=== PATIENT | male | born 2000 | race Caucasian/White ===

== ENCOUNTER 2025-02-28 19:33 | Emergency (ER) | payer MEDICAID ==
[~2025-02-28] VITALS: Ht 172.7 cm; Wt 90.0 kg
[2025-02-28 19:39] VITALS: TEMP 36.9; O2SAT 100
[2025-02-28 20:27] LABS: BASOPHILS % 0.6 % (0.0-2.0); EOSINOPHILS % 0.5 % (0.0-5.0); HEMATOCRIT. 41.2 % (42.0-52.0); HEMOGLOBIN. 14.4 g/dL (14.0-18.0); LYMPHOCYTES % 21.9 % (20.0-50.0); MEAN PLATELET VOLUME 10.1 fl (7.4-10.4); MONOCYTES % 9.1 % (2.0-8.0); NEUTROPHILS % 67.9 % (40.0-76.0); PLATELET 207 x1000/uL (130-400); RED BLOOD CELL COUNT 4.74 mill/uL (4.7-6.1); RED CELL DISTRIBUTION WIDTH 13.7 % (11.6-14.6)
[2025-02-28 20:41] LABS: CREATININE 1.1 mg/dL (0.6-1.3)
[2025-02-28 20:42] LABS: ETHANOL BLOOD < 10 mg/dL (<10); UREA NITROGEN BLOOD 11 mg/dL (9-23)
[2025-02-28] MEDS: SODIUM CHLORIDE 0.9% 1,000 ML IV ONE (21:06)
[2025-02-28 21:23] LABS: *AMPHETAMINES SCREEN URINE PRESUMPTIVE POSITIVE (NEGATIVE); *BARBITURATES SCREEN URINE NEGATIVE (NEGATIVE); *BENZODIAZEPINES SCREEN URINE NEGATIVE (NEGATIVE); *COCAINE SCREEN URINE NEGATIVE (NEGATIVE); CANNABINOID URINE SCREEN PRESUMPTIVE POSITIVE (NEGATIVE); METHADONE URINE SCREEN NEGATIVE (NEGATIVE); OPIATES URINE SCREEN NEGATIVE (NEGATIVE); PHENCYCLIDINE URINE SCREEN NEGATIVE (NEGATIVE)
[2025-02-28 21:24] LABS: ECSTASY MDMA SCREEN URINE CONF.TEST INDICATED (NEGATIVE)
[2025-02-28 22:23] VITALS: BP 133/69; PULSE 95; RESP 14; O2SAT 98
== END 2025-02-28 22:39 | disposition home or self-care (01) ==
LOC: ER 19:33
DX: F15.129 Other stimulant abuse with intoxication, unspecified (principal); F12.10 Cannabis abuse, uncomplicated; F17.200 Nicotine dependence, unspecified, uncomplicated; G40.909 Epilepsy, unspecified, not intractable, without status epilepticus; Z88.0 Allergy status to penicillin
CPT/HCPCS: 80305; 80048; 80320; 85025; 36415; 71045; 93005; 96360; 99285; J7030; G0480